=== PATIENT | female | born 1940 | race Two or more races ===

== ENCOUNTER 2018-12-03 14:30 | Inpatient (IN) | payer OTHER ==
[~2018-12-03] VITALS: Ht 160 cm; Wt 79.4 kg
[2018-12-03] MEDS ORDERED: FLUCONAZOL10 MG/1 ML PO (15:14)
[2018-12-03] MEDS ORDERED: MONTELUKAST SOD10 MG PO (15:15)
[2018-12-03] MEDS ORDERED: LEVOCETIRIZINE D5 MG PO (15:16)
[2018-12-03] MEDS ORDERED: CELEBREX200MG PO (15:17)
[2018-12-03] MEDS ORDERED: METHYLPREDNISOLONE PO (15:17)
[2018-12-07] MEDS ORDERED: LEVOTHYROXINE75 MCG PO (09:47)
[2018-12-07] MEDS ORDERED: METHYLPREDNISOLO4 MG PO (09:47)
[2018-12-07] MEDS ORDERED: CLONIDINE HCL0.2 MG PO (09:48)
[2018-12-07] MEDS ORDERED: FAMOTIDINE40 MG PO (09:48)
[2018-12-07] MEDS ORDERED: BETAXOLOL HCL20 MG PO (09:48)
[2018-12-07] MEDS ORDERED: OMEPRAZOLE20 MG PO (09:49)
[2018-12-07] MEDS ORDERED: JANUMET 50-1,01 EACH PO (09:49)
[2018-12-07] MEDS ORDERED: LOSARTAN POTASS50 MG PO (09:49)
[2018-12-07] MEDS ORDERED: ATORVASTATIN CA10 MG PO (09:49)
[2018-12-07] MEDS ORDERED: SPIRONOLACTONE50 MG PO (09:50)
== END 2018-12-09 18:06 | DRG 470 ==
LOC: O/R 14:30 → SURH 12-07 06:51 → O/R 12-07 12:00 → SURH 12-07 13:24 → O/R 12-07 14:30 → SURH 12-09 18:06
PROVIDERS: ADMIT Orthopaedic Surgery
PROC: 3E0F7GC Introduction of Other Therapeutic Substance into Respiratory Tract, Via Natural or Artificial Opening (ICD-10-PCS; 2018-12-07)
PROC: 0SRC0J9 Replacement of Right Knee Joint with Synthetic Substitute, Cemented, Open Approach (ICD-10-PCS; principal; 2018-12-07 12:00)
DX: M17.11 Unilateral primary osteoarthritis, right knee (principal); D62 Acute posthemorrhagic anemia; Z96.651 Presence of right artificial knee joint; I11.9 Hypertensive heart disease without heart failure; E11.9 Type 2 diabetes mellitus without complications; E78.00 Pure hypercholesterolemia, unspecified; E03.8 Other specified hypothyroidism; Z86.718 Personal history of other venous thrombosis and embolism; J45.20 Mild intermittent asthma, uncomplicated; Z79.52 Long term (current) use of systemic steroids; E66.8 Other obesity; K29.70 Gastritis, unspecified, without bleeding